=== PATIENT | female | born 1965 | race Hispanic/Latino ===

== ENCOUNTER 2018-08-17 13:35 | Outpatient (CLI) | payer BC ==
--- NOTE | 2018-08-17 16:30 | RAD ---
CHEST TWO VIEWS: HISTORY: Cough. COMPARISON: None. FINDINGS: Normal cardiac silhouette. Pulmonary vessels and hilum are normal. Costophrenic angles are clear. No consolidation or mass. No pneumothorax or osseous abnormalities. IMPRESSION: No acute cardiopulmonary process. POS: [facility]
== END 2018-08-17 13:36 | disposition home or self-care (01) ==
LOC: BICRAD 13:35
PROVIDERS: ATTEND Internal Medicine Rheumatology
DX: M06.09 Rheumatoid arthritis without rheumatoid factor, multiple sites (principal); R05 Cough
CPT/HCPCS: 71046

== ENCOUNTER 2018-08-27 16:28 | Outpatient (CLI) | payer BC ==
--- NOTE | 2018-08-27 21:17 | RAD ---
XR BONE SURVEY ADULT STANDARD 08/27/18 HISTORY: Staging of multiple myeloma. COMPARISON: None. FINDINGS: AP and lateral views of the cervical spine and thoracic spine as well as AP views of the bilateral ti b/fib, femurs, forearms, humeri. Lateral radiograph of the calvarium. AP and lateral views of the cer vical, thoracic and lumbar spine as well as AP view of the pelvis. Mild degenerative changes of the lower lumbar spine. Calvarium is intact. No suspicious osteolytic lesions in the axial appendicular skeleton. Phleboliths in the pelvis. IMPRESSION: No suspicious osteolytic lesions within the axillary or appendicular skeleton. POS: TC
== END 2018-08-27 16:29 | disposition home or self-care (01) ==
LOC: BICRAD 16:28
PROVIDERS: ATTEND Internal Medicine Hematology & Oncology
DX: D47.2 Monoclonal gammopathy (principal)
CPT/HCPCS: 77075